=== PATIENT | male | born 1955 | race Caucasian/White ===

== ENCOUNTER 2021-04-20 00:26 | Inpatient (IN) | payer OTHER ==
[2021-04-20] MEDS ORDERED: Ondansetron PF 4 MG/2 ML Vial ONE (01:08)
[2021-04-20] MEDS ORDERED: Morphine 4 MG/ML VIAL ONE (01:08)
[2021-04-20 02:17] LABS: #Basophils 0.1 10x3/uL (0.0-0.2); #Eosinphils 0.1 10x3/uL (0.0-0.5); #Monocytes 0.5 10x3/uL (0.0-1.1); #Neutrophils 7.5 10x3/uL (1.5-8.4); %Basophils 0.6 % (0.0-2.0); %Eosinophils 0.9 % (0.0-6.0); %Lymphocytes 8.7 % (18.0-47.0); %Monocytes 5.6 % (0.0-10.0); %Neutrophils 83.9 % (40.0-75.0); Hemoglobin 10.7 g/dL (13.5-17.5); Mean Corpuscular HGB CONC 34.6 g/dL (32.0-36.0); Mean Corpuscular Hemoglobin 29.9 pg (27.0-33.0); Mean Corpuscular Volume 86.3 fl (81.2-95.1); Mean Platelet Volume 9.9 fl (7.4-10.4); Platelet Count 206 10x3/uL (150-450); RBC Distribution Width 13.5 % (11.5-14.5); Red Blood Cell (RBC) Count 3.58 10x6/uL (4.32-5.72)
[2021-04-20 02:36] LABS: ALT (SGPT) 17 U/L (8-55); AST (SGOT) 32 U/L (5-34); Albumin 3.9 g/dL (3.4-4.8); Alkaline Phosphatase 63 U/L (40-110); Anion Gap 17 mmol/L (10-20); BUN (Urea Nitrogen) 23 mg/dL (8.4-25.7); Calc. Creatinine Clearance 0 mL/min (70-130); Calcium 8.7 mg/dL (7.8-10.44); Carbon Dioxide 23 mmol/L (23-31); Chloride 99 mmol/L (98-107); Globulin 2.6 g/dL (2.4-3.5); Glucose 121 mg/dL (80-115); Lipase 20 U/L (8-78); Protein, Total 6.5 g/dL (5.8-8.1); Sodium 136 mmol/L (136-145)
[2021-04-20 03:15] LABS: CKMB 13.6 ng/mL (0-6.6)
[2021-04-20] MEDS ORDERED: Enoxaparin Sodium 100 MG/ML SYRINGE ONE (03:32)
[2021-04-20] MEDS ORDERED: Nitroglycerin 2% Ointment 1 INCH/1 GM Packet ONE (03:32)
[2021-04-20] MEDS ORDERED: Potassium Chloride 20 MEQ TAB ONE (04:32)
[2021-04-20] MEDS ORDERED: Furosemide 40 MG/4 ML VIAL ONE (05:38)
[2021-04-20] MEDS ORDERED: Nitroglycerin 0.4 MG TAB (25 Tab Bottle) SL PRN (08:13)
[2021-04-20 08:44] LABS: Hemoglobin 10.8 g/dL (13.5-17.5); Platelet Count 219 10x3/uL (150-450)
[2021-04-20] MEDS ORDERED: Potassium Chloride 40 MEQ in Premix Bag 1 BAG IVPB SCH (09:00)
[2021-04-20] MEDS ORDERED: Chloraseptic Spray 180 ml Bottle PO PRN (09:51)
[2021-04-20 10:11] LABS: SARS-CoV-2 NAA Rapid Test DETECTED (NotDetected)
[2021-04-20 10:15] LABS: Troponin I 18.664 ng/mL (< 0.028)
[2021-04-20] MEDS ORDERED: Furosemide 40 MG/4 ML VIAL SLOW IVP SCH (11:00)
[2021-04-20] MEDS: Famotidine/PF 20 mg/2ml Vial SLOW IVP SCH ×2 (11:34→19:40)
[2021-04-20] MEDS: Heparin 25,000 units/D5W 500 ML IVPB SCH (11:35)
[2021-04-20] MEDS: Heparin 10,000 UNITS/ 10 ML VIAL SLOW IVP SCH ×2 (11:36→19:35)
[2021-04-20] MEDS: Potassium Chloride 20 MEQ in Premix Bag 1 BAG IVPB SCH ×2 (11:36→18:14)
[2021-04-20] MEDS: Guaifenesin DM 100-10/5 ML UDCUP PO PRN (11:36)
[2021-04-20] MEDS: Acetaminophen 325 MG TAB PO PRN (16:43)
[2021-04-20 17:28] LABS: Bilirubin Neg (Negative); Blood, Urine 25 (Negative); Clarity Clear (Clear); Glucose, Urine (Dipstick) Normal (Negative); Ketone, Urine Negative (Negative); Leukocyte Negative (Negative); Nitrite Negative (Negative); Protein, Urine (Dipstick) 30 mg/dl (Neg-Trace); Specific Gravity, Urine 1.015 (1.002-1.036); Urobilinogen Normal mg/dL (Less than 2)
[2021-04-20 17:30] LABS: Magnesium 2.1 mg/dL (1.6-2.6)
[2021-04-20 17:33] LABS: RBC/HPF 0-3 HPF (0-3); Squamous Epithelial None Seen HPF (0-3); WBC/HPF None Seen HPF (0-3)
[2021-04-20 17:34] LABS: Bacteria/HPF Rare-Few HPF (None Seen)
[2021-04-20] MEDS: Potassium Chloride 10 MEQ in Premix Bag 1 BAG IVPB SCH ×2 (18:14→18:15)
[2021-04-20 19:19] LABS: Troponin I 19.555 ng/mL (< 0.028)
[2021-04-20] MEDS ORDERED: Potassium Chloride 20 MEQ TAB PO SCH (20:00)
[2021-04-20] MEDS ORDERED: Atorvastatin Calcium 40 MG TAB PO SCH (21:00)
[2021-04-20] MEDS: Morphine 4 MG/ML VIAL SLOW IVP PRN (22:03)
[2021-04-21 02:15] LABS: #Basophils 0.1 10x3/uL (0.0-0.2); #Eosinphils 0.1 10x3/uL (0.0-0.5); #Monocytes 0.5 10x3/uL (0.0-1.1); #Neutrophils 6.5 10x3/uL (1.5-8.4); %Basophils 0.7 % (0.0-2.0); %Eosinophils 0.6 % (0.0-6.0); %Lymphocytes 17.3 % (18.0-47.0); %Neutrophils 74.9 % (40.0-75.0); Hemoglobin 10.9 g/dL (13.5-17.5); Mean Corpuscular HGB CONC 33.9 g/dL (32.0-36.0); Mean Corpuscular Volume 88.7 fl (81.2-95.1); Mean Platelet Volume 10.1 fl (7.4-10.4); Platelet Count 233 10x3/uL (150-450); RBC Distribution Width 13.8 % (11.5-14.5); Red Blood Cell (RBC) Count 3.63 10x6/uL (4.32-5.72); White Blood Cell (WBC) Count 8.6 10x3/uL (3.5-10.5)
[2021-04-21] MEDS: Heparin 10,000 UNITS/ 10 ML VIAL SLOW IVP SCH ×2 (03:40→10:09)
[2021-04-21 04:30] LABS: ALT (SGPT) 22 U/L (8-55); AST (SGOT) 59 U/L (5-34); Albumin 3.7 g/dL (3.4-4.8); Alkaline Phosphatase 63 U/L (40-110); Anion Gap 16 mmol/L (10-20); BUN (Urea Nitrogen) 24 mg/dL (8.4-25.7); Bilirubin, Total 1.3 mg/dL (0.2-1.2); Calc. Creatinine Clearance 83 mL/min (70-130); Calcium 8.4 mg/dL (7.8-10.44); Carbon Dioxide 25 mmol/L (23-31); Chloride 100 mmol/L (98-107); Cholesterol 189 mg/dl (< 200 Desired); Globulin 3.1 g/dL (2.4-3.5); Glucose 119 mg/dL (80-115); HDL Cholesterol 27 mg/dL (>60 Neg Risk); LDL Cholesterol, Calculated 118 mg/dL; Magnesium 2.2 mg/dL (1.6-2.6); Potassium 3.3 mmol/L (3.5-5.1); Protein, Total 6.8 g/dL (5.8-8.1); Sodium 138 mmol/L (136-145); Triglycerides 220 mg/dL (Less than 150)
[2021-04-21] MEDS: Heparin 25,000 units/D5W 500 ML IVPB SCH (08:20)
[2021-04-21] MEDS: Furosemide 40 MG TAB PO SCH (08:21)
[2021-04-21] MEDS: Famotidine/PF 20 mg/2ml Vial SLOW IVP SCH ×2 (08:21→20:31)
[2021-04-21] MEDS: Zinc Sulfate 220 MG CAP PO SCH (08:27)
[2021-04-21] MEDS: Dexamethasone 20 MG/5 ML VIAL SLOW IVP SCH ×2 (08:27→20:30)
[2021-04-21] MEDS: Acetaminophen 325 MG TAB PO PRN (08:45)
[2021-04-21] MEDS: Guaifenesin DM 100-10/5 ML UDCUP PO PRN (08:45)
[2021-04-21] MEDS ORDERED: Potassium Chloride 20 MEQ in Premix Bag 1 BAG IVPB SCH (09:00)
[2021-04-21] MEDS ORDERED: Furosemide 40 MG TAB PO SCH ×2 (09:00)
[2021-04-21 09:41] LABS: Troponin I 12.557 ng/mL (< 0.028)
[2021-04-21] MEDS: Senokot 8.6 MG TAB PO PRN (11:25)
[2021-04-21] MEDS: Ondansetron PF 4 MG/2 ML Vial IVP PRN ×2 (11:25→22:03)
[2021-04-21] MEDS ORDERED: Potassium Chloride 20 MEQ TAB PO SCH (11:45)
[2021-04-21 16:44] LABS: PTT 75.5 sec (22.0-33.0)
[2021-04-21] MEDS: Terazosin HCl 5 MG CAP PO SCH (20:30)
[2021-04-21] MEDS ORDERED: guaiFENesin/Codeine Phosphate 100 mg/10 mg 5 ml UD Cup PO SCH (21:45)
[2021-04-21] MEDS: Benzonatate 100 MG CAP PO PRN (22:03)
[2021-04-22 05:13] LABS: Anion Gap 16 mmol/L (10-20); BUN (Urea Nitrogen) 36 mg/dL (8.4-25.7); CRP (Inflammatory) 9.56 mg/dL (= or < 0.5); Calc. Creatinine Clearance 64 mL/min (70-130); Calcium 8.7 mg/dL (7.8-10.44); Carbon Dioxide 25 mmol/L (23-31); Chloride 102 mmol/L (98-107); Glucose 158 mg/dL (80-115); Potassium 4.4 mmol/L (3.5-5.1); Sodium 139 mmol/L (136-145)
[2021-04-22 05:16] LABS: #Monocytes 0.2 10x3/uL (0.0-1.1); %Basophils 0.1 % (0.0-2.0); %Lymphocytes 5.6 % (18.0-47.0); Hemoglobin 10.5 g/dL (13.5-17.5); Mean Corpuscular HGB CONC 34.2 g/dL (32.0-36.0); Mean Corpuscular Hemoglobin 30.4 pg (27.0-33.0); Mean Platelet Volume 9.8 fl (7.4-10.4); Platelet Count 225 10x3/uL (150-450); RBC Distribution Width 13.6 % (11.5-14.5); Red Blood Cell (RBC) Count 3.45 10x6/uL (4.32-5.72); White Blood Cell (WBC) Count 8.7 10x3/uL (3.5-10.5)
[2021-04-22] MEDS: Furosemide 40 MG TAB PO SCH (06:26)
[2021-04-22] MEDS: Levothyroxine Sodium 25 MCG TAB PO SCH (06:27)
[2021-04-22 08:27] LABS: Hemoglobin 10.5 g/dL (13.5-17.5); Platelet Count 234 10x3/uL (150-450)
[2021-04-22] MEDS: Zinc Sulfate 220 MG CAP PO SCH (08:43)
[2021-04-22] MEDS: Dexamethasone 20 MG/5 ML VIAL SLOW IVP SCH ×2 (08:45→20:33)
[2021-04-22] MEDS: Clopidogrel Bisulfate 75 MG TAB PO SCH (08:45)
[2021-04-22] MEDS: Aspirin 81 mg Enteric Coated Tablet PO SCH (08:45)
[2021-04-22] MEDS: Famotidine/PF 20 mg/2ml Vial SLOW IVP SCH ×2 (08:46→20:33)
[2021-04-22 08:48] LABS: Troponin I 6.683 ng/mL (< 0.028)
[2021-04-22] MEDS ORDERED: Simethicone Chewable 80 MG TAB PO SCH (16:45)
[2021-04-22] MEDS: Acetaminophen 325 MG TAB PO PRN ×2 (17:14→20:56)
[2021-04-22] MEDS: Terazosin HCl 5 MG CAP PO SCH (20:32)
[2021-04-22] MEDS: Guaifenesin DM 100-10/5 ML UDCUP PO PRN (20:32)
[2021-04-22] MEDS: Simethicone Chewable 80 MG TAB PO SCH (20:33)
[2021-04-23] MEDS: Guaifenesin DM 100-10/5 ML UDCUP PO PRN ×2 (04:05→20:54)
[2021-04-23] MEDS: Acetaminophen 325 MG TAB PO PRN ×3 (04:05→20:54)
[2021-04-23] MEDS: Benzonatate 100 MG CAP PO PRN (04:05)
[2021-04-23] MEDS: Levothyroxine Sodium 25 MCG TAB PO SCH (06:28)
[2021-04-23 08:57] LABS: Anion Gap 17 mmol/L (10-20); BUN (Urea Nitrogen) 56 mg/dL (8.4-25.7); Calc. Creatinine Clearance 61 mL/min (70-130); Calcium 8.5 mg/dL (7.8-10.44); Carbon Dioxide 23 mmol/L (23-31); Chloride 99 mmol/L (98-107); Glucose 149 mg/dL (80-115); Potassium 3.9 mmol/L (3.5-5.1); Sodium 135 mmol/L (136-145)
[2021-04-23] MEDS: Clopidogrel Bisulfate 75 MG TAB PO SCH (09:27)
[2021-04-23] MEDS: Aspirin 81 mg Enteric Coated Tablet PO SCH (09:27)
[2021-04-23] MEDS: Potassium Chloride 20 MEQ TAB PO SCH (09:27)
[2021-04-23] MEDS: Famotidine/PF 20 mg/2ml Vial SLOW IVP SCH ×2 (09:28→20:53)
[2021-04-23] MEDS: Dexamethasone 20 MG/5 ML VIAL SLOW IVP SCH ×2 (09:28→20:53)
[2021-04-23] MEDS: Furosemide 40 MG/4 ML VIAL SLOW IVP SCH (09:28)
[2021-04-23] MEDS: Simethicone Chewable 80 MG TAB PO SCH ×3 (09:30→20:53)
[2021-04-23] MEDS: Zinc Sulfate 220 MG CAP PO SCH (09:31)
[2021-04-23] MEDS: Terazosin HCl 5 MG CAP PO SCH (21:38)
[2021-04-24 05:03] LABS: Anion Gap 18 mmol/L (10-20); BUN (Urea Nitrogen) 62 mg/dL (8.4-25.7); Calc. Creatinine Clearance 0 mL/min (70-130); Calcium 8.5 mg/dL (7.8-10.44); Carbon Dioxide 23 mmol/L (23-31); Chloride 99 mmol/L (98-107); Glucose 171 mg/dL (80-115); Sodium 136 mmol/L (136-145)
[2021-04-24] MEDS: Levothyroxine Sodium 25 MCG TAB PO SCH (06:10)
[2021-04-24 08:15] LABS: Hemoglobin 10.8 g/dL (13.5-17.5); Platelet Count 325 10x3/uL (150-450)
[2021-04-24] MEDS: Potassium Chloride 20 MEQ TAB PO SCH (08:52)
[2021-04-24] MEDS: Clopidogrel Bisulfate 75 MG TAB PO SCH (08:52)
[2021-04-24] MEDS: Dexamethasone 20 MG/5 ML VIAL SLOW IVP SCH ×2 (08:52→21:13)
[2021-04-24] MEDS: Famotidine/PF 20 mg/2ml Vial SLOW IVP SCH ×2 (08:52→21:13)
[2021-04-24] MEDS: Furosemide 40 MG/4 ML VIAL SLOW IVP SCH ×2 (08:52→14:24)
[2021-04-24] MEDS: Aspirin 81 mg Enteric Coated Tablet PO SCH (08:52)
[2021-04-24] MEDS: Zinc Sulfate 220 MG CAP PO SCH (08:53)
[2021-04-24] MEDS: Guaifenesin DM 100-10/5 ML UDCUP PO PRN (08:53)
[2021-04-24] MEDS: Acetaminophen 325 MG TAB PO PRN ×2 (08:53→21:12)
[2021-04-24] MEDS: Simethicone Chewable 80 MG TAB PO SCH ×3 (08:53→21:12)
[2021-04-24] MEDS: Morphine 4 MG/ML VIAL SLOW IVP PRN ×2 (11:07→17:22)
[2021-04-24] MEDS: Carvedilol 3.125 MG TAB PO SCH (17:22)
[2021-04-24] MEDS: traZODone HCl 50 MG TAB PO PRN (21:12)
[2021-04-24] MEDS: Terazosin HCl 5 MG CAP PO SCH (21:12)
[2021-04-24] MEDS: Benzonatate 100 MG CAP PO PRN (21:13)
[2021-04-25] MEDS: Furosemide 40 MG/4 ML VIAL SLOW IVP SCH ×2 (05:47→15:50)
[2021-04-25] MEDS: Levothyroxine Sodium 25 MCG TAB PO SCH (05:47)
[2021-04-25] MEDS: Carvedilol 3.125 MG TAB PO SCH ×2 (09:15→15:50)
[2021-04-25] MEDS: Potassium Chloride 20 MEQ TAB PO SCH (09:15)
[2021-04-25] MEDS: Aspirin 81 mg Enteric Coated Tablet PO SCH (09:15)
[2021-04-25] MEDS: Guaifenesin DM 100-10/5 ML UDCUP PO PRN ×2 (09:16→21:51)
[2021-04-25] MEDS: Simethicone Chewable 80 MG TAB PO SCH ×3 (09:16→21:35)
[2021-04-25] MEDS: Zinc Sulfate 220 MG CAP PO SCH (09:16)
[2021-04-25] MEDS: Dexamethasone 20 MG/5 ML VIAL SLOW IVP SCH ×2 (09:16→21:36)
[2021-04-25] MEDS: Clopidogrel Bisulfate 75 MG TAB PO SCH (09:16)
[2021-04-25] MEDS: Famotidine/PF 20 mg/2ml Vial SLOW IVP SCH ×2 (09:16→21:36)
[2021-04-25] MEDS: Acetaminophen 325 MG TAB PO PRN ×2 (09:17→14:15)
[2021-04-25] MEDS: Morphine 4 MG/ML VIAL SLOW IVP PRN (15:50)
[2021-04-25] MEDS: Terazosin HCl 5 MG CAP PO SCH (21:36)
[2021-04-25] MEDS: Bisacodyl 5 MG TAB PO PRN (21:51)
[2021-04-25] MEDS: Benzonatate 100 MG CAP PO PRN (21:51)
[2021-04-26] MEDS: Acetaminophen 325 MG TAB PO PRN (00:45)
[2021-04-26 03:52] LABS: #Monocytes 0.3 10x3/uL (0.0-1.1); #Neutrophils 10.8 10x3/uL (1.5-8.4); %Basophils 0.1 % (0.0-2.0); %Lymphocytes 4.9 % (18.0-47.0); %Monocytes 2.4 % (0.0-10.0); %Neutrophils 90.8 % (40.0-75.0); Hemoglobin 10.8 g/dL (13.5-17.5); Mean Corpuscular HGB CONC 33.8 g/dL (32.0-36.0); Mean Corpuscular Hemoglobin 29.7 pg (27.0-33.0); Mean Corpuscular Volume 87.9 fl (81.2-95.1); Mean Platelet Volume 10.1 fl (7.4-10.4); Platelet Count 349 10x3/uL (150-450); RBC Distribution Width 13.6 % (11.5-14.5); Red Blood Cell (RBC) Count 3.64 10x6/uL (4.32-5.72); White Blood Cell (WBC) Count 11.9 10x3/uL (3.5-10.5)
[2021-04-26] MEDS: Furosemide 40 MG/4 ML VIAL SLOW IVP SCH (06:38)
[2021-04-26] MEDS: Levothyroxine Sodium 25 MCG TAB PO SCH (06:38)
[2021-04-26 09:38] LABS: Hemoglobin 11.2 g/dL (13.5-17.5); Platelet Count 326 10x3/uL (150-450)
[2021-04-26] MEDS: Dexamethasone 20 MG/5 ML VIAL SLOW IVP SCH ×2 (09:55→20:43)
[2021-04-26] MEDS: Pantoprazole 40 MG VIAL IVP SCH (09:55)
[2021-04-26] MEDS: Simethicone Chewable 80 MG TAB PO SCH ×3 (09:56→20:43)
[2021-04-26] MEDS: Zinc Sulfate 220 MG CAP PO SCH (09:56)
[2021-04-26] MEDS: Aspirin 81 mg Enteric Coated Tablet PO SCH (09:57)
[2021-04-26] MEDS: Clopidogrel Bisulfate 75 MG TAB PO SCH (09:57)
[2021-04-26] MEDS: Carvedilol 3.125 MG TAB PO SCH ×2 (09:57→17:22)
[2021-04-26] MEDS: Potassium Chloride 20 MEQ TAB PO SCH (10:01)
[2021-04-26] MEDS: Famotidine/PF 20 mg/2ml Vial SLOW IVP SCH ×2 (11:48→20:43)
[2021-04-26] MEDS: Terazosin HCl 5 MG CAP PO SCH (20:43)
[2021-04-27] MEDS: Ondansetron PF 4 MG/2 ML Vial IVP PRN ×2 (00:09→14:28)
[2021-04-27] MEDS: Levothyroxine Sodium 25 MCG TAB PO SCH (05:49)
[2021-04-27 09:39] LABS: Anion Gap 16 mmol/L (10-20); BUN (Urea Nitrogen) 51 mg/dL (8.4-25.7); Calc. Creatinine Clearance 0 mL/min (70-130); Calcium 8.3 mg/dL (7.8-10.44); Carbon Dioxide 27 mmol/L (23-31); Chloride 99 mmol/L (98-107); Glucose 176 mg/dL (80-115); Potassium 4.8 mmol/L (3.5-5.1); Sodium 137 mmol/L (136-145)
[2021-04-27] MEDS: Guaifenesin DM 100-10/5 ML UDCUP PO PRN (10:14)
[2021-04-27] MEDS: Dexamethasone 20 MG/5 ML VIAL SLOW IVP SCH ×2 (10:14→20:39)
[2021-04-27] MEDS: Bisacodyl 5 MG TAB PO PRN (10:14)
[2021-04-27] MEDS: Simethicone Chewable 80 MG TAB PO SCH ×3 (10:15→20:36)
[2021-04-27] MEDS: Carvedilol 3.125 MG TAB PO SCH ×2 (10:15→17:48)
[2021-04-27] MEDS: Aspirin 81 mg Enteric Coated Tablet PO SCH (10:15)
[2021-04-27] MEDS: Zinc Sulfate 220 MG CAP PO SCH (10:15)
[2021-04-27] MEDS: Pantoprazole 40 MG VIAL IVP SCH (10:15)
[2021-04-27] MEDS: Potassium Chloride 20 MEQ TAB PO SCH (10:15)
[2021-04-27] MEDS: Furosemide 40 MG TAB PO SCH (10:15)
[2021-04-27] MEDS: Clopidogrel Bisulfate 75 MG TAB PO SCH (10:16)
[2021-04-27] MEDS: Famotidine/PF 20 mg/2ml Vial SLOW IVP SCH (10:16)
[2021-04-27 11:01] LABS: #Monocytes 0.4 10x3/uL (0.0-1.1); #Neutrophils 9.6 10x3/uL (1.5-8.4); %Basophils 0.3 % (0.0-2.0); %Lymphocytes 5.9 % (18.0-47.0); %Monocytes 3.6 % (0.0-10.0); %Neutrophils 88.4 % (40.0-75.0); Hemoglobin 10.9 g/dL (13.5-17.5); Mean Corpuscular HGB CONC 32.5 g/dL (32.0-36.0); Mean Corpuscular Hemoglobin 29.7 pg (27.0-33.0); Mean Corpuscular Volume 91.3 fl (81.2-95.1); Mean Platelet Volume 10.6 fl (7.4-10.4); Platelet Count 318 10x3/uL (150-450); RBC Distribution Width 13.9 % (11.5-14.5); Red Blood Cell (RBC) Count 3.67 10x6/uL (4.32-5.72); White Blood Cell (WBC) Count 10.8 10x3/uL (3.5-10.5)
[2021-04-27] MEDS: Benzonatate 100 MG CAP PO PRN ×2 (13:50→20:37)
[2021-04-27] MEDS: guaiFENesin/Codeine Phosphate 100 mg/10 mg 5 ml UD Cup PO PRN (17:48)
[2021-04-27] MEDS: Terazosin HCl 5 MG CAP PO SCH (20:37)
[2021-04-27] MEDS: traZODone HCl 50 MG TAB PO PRN (20:37)
[2021-04-27] MEDS: Acetaminophen 325 MG TAB PO PRN (20:40)
[2021-04-28] MEDS: guaiFENesin/Codeine Phosphate 100 mg/10 mg 5 ml UD Cup PO PRN ×3 (05:25→18:20)
[2021-04-28] MEDS: Levothyroxine Sodium 25 MCG TAB PO SCH (05:25)
[2021-04-28] MEDS: Furosemide 40 MG TAB PO SCH (05:25)
[2021-04-28 06:23] LABS: #Monocytes 0.3 10x3/uL (0.0-1.1); %Basophils 0.2 % (0.0-2.0); %Lymphocytes 4.8 % (18.0-47.0); %Monocytes 2.9 % (0.0-10.0); Hemoglobin 10.9 g/dL (13.5-17.5); Mean Corpuscular HGB CONC 31.8 g/dL (32.0-36.0); Mean Corpuscular Hemoglobin 29.1 pg (27.0-33.0); Mean Corpuscular Volume 91.7 fl (81.2-95.1); Mean Platelet Volume 10.4 fl (7.4-10.4); Platelet Count 320 10x3/uL (150-450); RBC Distribution Width 13.8 % (11.5-14.5); Red Blood Cell (RBC) Count 3.74 10x6/uL (4.32-5.72); White Blood Cell (WBC) Count 11.1 10x3/uL (3.5-10.5)
[2021-04-28 06:46] LABS: Anion Gap 16 mmol/L (10-20); BUN (Urea Nitrogen) 48 mg/dL (8.4-25.7); Calc. Creatinine Clearance 0 mL/min (70-130); Calcium 8.3 mg/dL (7.8-10.44); Carbon Dioxide 25 mmol/L (23-31); Chloride 99 mmol/L (98-107); Glucose 169 mg/dL (80-115); Potassium 4.7 mmol/L (3.5-5.1); Sodium 135 mmol/L (136-145)
[2021-04-28] MEDS: Senokot 8.6 MG TAB PO PRN ×2 (11:11→22:19)
[2021-04-28] MEDS: Potassium Chloride 20 MEQ TAB PO SCH (11:12)
[2021-04-28] MEDS: Zinc Sulfate 220 MG CAP PO SCH (11:12)
[2021-04-28] MEDS: Dexamethasone 20 MG/5 ML VIAL SLOW IVP SCH ×2 (11:12→22:20)
[2021-04-28] MEDS: Carvedilol 3.125 MG TAB PO SCH ×2 (11:12→18:20)
[2021-04-28] MEDS: Simethicone Chewable 80 MG TAB PO SCH ×3 (11:12→22:19)
[2021-04-28] MEDS: Aspirin 81 mg Enteric Coated Tablet PO SCH (11:12)
[2021-04-28] MEDS: Pantoprazole 40 MG VIAL IVP SCH (11:13)
[2021-04-28] MEDS ORDERED: Mineral Oil ENEMA PR SCH (12:00)
[2021-04-28] MEDS: Benzonatate 100 MG CAP PO PRN (22:19)
[2021-04-28] MEDS: Terazosin HCl 5 MG CAP PO SCH (22:21)
[2021-04-28] MEDS: traZODone HCl 50 MG TAB PO PRN (22:29)
[2021-04-29] MEDS: Furosemide 40 MG TAB PO SCH (05:18)
[2021-04-29] MEDS: guaiFENesin/Codeine Phosphate 100 mg/10 mg 5 ml UD Cup PO PRN ×3 (05:18→21:24)
[2021-04-29] MEDS: Simethicone Chewable 80 MG TAB PO SCH ×3 (05:18→21:19)
[2021-04-29] MEDS: Levothyroxine Sodium 25 MCG TAB PO SCH (05:18)
[2021-04-29 05:47] LABS: Anion Gap 13 mmol/L (10-20); BUN (Urea Nitrogen) 47 mg/dL (8.4-25.7); Calc. Creatinine Clearance 0 mL/min (70-130); Calcium 8.1 mg/dL (7.8-10.44); Carbon Dioxide 27 mmol/L (23-31); Chloride 98 mmol/L (98-107); Glucose 158 mg/dL (80-115); Potassium 4.6 mmol/L (3.5-5.1); Sodium 133 mmol/L (136-145)
[2021-04-29 05:49] LABS: #Monocytes 0.2 10x3/uL (0.0-1.1); #Neutrophils 10.2 10x3/uL (1.5-8.4); %Basophils 0.2 % (0.0-2.0); %Lymphocytes 4.5 % (18.0-47.0); %Monocytes 1.9 % (0.0-10.0); %Neutrophils 91.1 % (40.0-75.0); Hemoglobin 10.7 g/dL (13.5-17.5); Mean Corpuscular Hemoglobin 29.9 pg (27.0-33.0); Mean Corpuscular Volume 90.5 fl (81.2-95.1); Mean Platelet Volume 10.6 fl (7.4-10.4); Platelet Count 311 10x3/uL (150-450); Red Blood Cell (RBC) Count 3.58 10x6/uL (4.32-5.72); White Blood Cell (WBC) Count 11.2 10x3/uL (3.5-10.5)
[2021-04-29] MEDS: Carvedilol 3.125 MG TAB PO SCH ×2 (09:22→18:02)
[2021-04-29] MEDS: Aspirin 81 mg Enteric Coated Tablet PO SCH (09:22)
[2021-04-29] MEDS: Senokot 8.6 MG TAB PO PRN ×2 (09:22→21:19)
[2021-04-29] MEDS: Zinc Sulfate 220 MG CAP PO SCH (09:22)
[2021-04-29] MEDS: Dexamethasone 20 MG/5 ML VIAL SLOW IVP SCH ×2 (09:23→21:20)
[2021-04-29] MEDS: Pantoprazole 40 MG VIAL IVP SCH (09:23)
[2021-04-29] MEDS: Potassium Chloride 20 MEQ TAB PO SCH (09:24)
[2021-04-29 13:26] VITALS: BMI 30.4
[2021-04-29] MEDS: Bisacodyl 5 MG TAB PO PRN (14:27)
[2021-04-29] MEDS: Terazosin HCl 5 MG CAP PO SCH (21:20)
[2021-04-30] MEDS: Levothyroxine Sodium 25 MCG TAB PO SCH (05:17)
[2021-04-30] MEDS: Furosemide 40 MG TAB PO SCH (05:17)
[2021-04-30 06:29] LABS: Anion Gap 15 mmol/L (10-20); BUN (Urea Nitrogen) 48 mg/dL (8.4-25.7); Calc. Creatinine Clearance 81 mL/min (70-130); Calcium 8.3 mg/dL (7.8-10.44); Carbon Dioxide 23 mmol/L (23-31); Chloride 100 mmol/L (98-107); Glucose 144 mg/dL (80-115); Potassium 4.8 mmol/L (3.5-5.1); Sodium 133 mmol/L (136-145)
[2021-04-30 07:02] LABS: #Monocytes 0.4 10x3/uL (0.0-1.1); #Neutrophils 11.2 10x3/uL (1.5-8.4); %Basophils 0.2 % (0.0-2.0); %Lymphocytes 5.1 % (18.0-47.0); %Monocytes 2.9 % (0.0-10.0); Hemoglobin 11.4 g/dL (13.5-17.5); Mean Corpuscular HGB CONC 32.5 g/dL (32.0-36.0); Mean Corpuscular Hemoglobin 29.5 pg (27.0-33.0); Mean Corpuscular Volume 90.9 fl (81.2-95.1); Mean Platelet Volume 10.4 fl (7.4-10.4); Platelet Count 299 10x3/uL (150-450); RBC Distribution Width 14.3 % (11.5-14.5); Red Blood Cell (RBC) Count 3.86 10x6/uL (4.32-5.72); White Blood Cell (WBC) Count 12.5 10x3/uL (3.5-10.5)
[2021-04-30] MEDS: Dexamethasone 20 MG/5 ML VIAL SLOW IVP SCH ×2 (08:17→21:48)
[2021-04-30] MEDS: Simethicone Chewable 80 MG TAB PO SCH ×3 (08:18→21:46)
[2021-04-30] MEDS: Zinc Sulfate 220 MG CAP PO SCH (08:18)
[2021-04-30] MEDS: Pantoprazole 40 MG VIAL IVP SCH (08:18)
[2021-04-30] MEDS: Senokot 8.6 MG TAB PO PRN ×2 (08:18→16:57)
[2021-04-30] MEDS: Carvedilol 3.125 MG TAB PO SCH ×2 (08:18→16:58)
[2021-04-30] MEDS: Potassium Chloride 20 MEQ TAB PO SCH (08:18)
[2021-04-30] MEDS: Aspirin 81 mg Enteric Coated Tablet PO SCH (08:18)
[2021-04-30] MEDS ORDERED: Fleet Enema 133 ML BOT PR SCH (09:00)
[2021-04-30] MEDS: Terazosin HCl 5 MG CAP PO SCH (21:46)
[2021-05-01] MEDS: Levothyroxine Sodium 25 MCG TAB PO SCH (06:23)
[2021-05-01] MEDS: Zinc Sulfate 220 MG CAP PO SCH (08:26)
[2021-05-01] MEDS: Potassium Chloride 20 MEQ TAB PO SCH (08:26)
[2021-05-01] MEDS: Aspirin 81 mg Enteric Coated Tablet PO SCH (08:26)
[2021-05-01] MEDS: Dexamethasone 20 MG/5 ML VIAL SLOW IVP SCH (08:26)
[2021-05-01] MEDS: Simethicone Chewable 80 MG TAB PO SCH ×3 (08:26→21:43)
[2021-05-01] MEDS: Carvedilol 3.125 MG TAB PO SCH ×3 (08:26→17:13)
[2021-05-01] MEDS: Furosemide 40 MG TAB PO SCH (08:26)
[2021-05-01] MEDS: Pantoprazole 40 MG VIAL IVP SCH (08:26)
[2021-05-01] MEDS: Benzonatate 100 MG CAP PO SCH ×2 (17:13→21:43)
[2021-05-01] MEDS: Terazosin HCl 5 MG CAP PO SCH (21:43)
[2021-05-02 05:25] LABS: Anion Gap 14 mmol/L (10-20); BUN (Urea Nitrogen) 45 mg/dL (8.4-25.7); Calc. Creatinine Clearance 82 mL/min (70-130); Calcium 8.4 mg/dL (7.8-10.44); Carbon Dioxide 26 mmol/L (23-31); Chloride 100 mmol/L (98-107); Glucose 101 mg/dL (80-115); Potassium 4.6 mmol/L (3.5-5.1); Sodium 135 mmol/L (136-145)
[2021-05-02] MEDS: Levothyroxine Sodium 25 MCG TAB PO SCH (06:34)
[2021-05-02 07:51] LABS: #Monocytes 0.7 10x3/uL (0.0-1.1); #Neutrophils 14.8 10x3/uL (1.5-8.4); %Basophils 0.2 % (0.0-2.0); %Eosinophils 0.1 % (0.0-6.0); %Lymphocytes 7.4 % (18.0-47.0); %Monocytes 4.2 % (0.0-10.0); %Neutrophils 86.6 % (40.0-75.0); Hemoglobin 11.8 g/dL (13.5-17.5); Mean Corpuscular Hemoglobin 29.4 pg (27.0-33.0); Mean Platelet Volume 10.4 fl (7.4-10.4); Platelet Count 285 10x3/uL (150-450); RBC Distribution Width 14.3 % (11.5-14.5); Red Blood Cell (RBC) Count 4.01 10x6/uL (4.32-5.72); White Blood Cell (WBC) Count 17.1 10x3/uL (3.5-10.5)
[2021-05-02] MEDS: Zinc Sulfate 220 MG CAP PO SCH (08:10)
[2021-05-02] MEDS: Pantoprazole 40 MG VIAL IVP SCH (08:10)
[2021-05-02] MEDS: Potassium Chloride 20 MEQ TAB PO SCH (08:11)
[2021-05-02] MEDS: Simethicone Chewable 80 MG TAB PO SCH ×3 (08:11→21:18)
[2021-05-02] MEDS: Benzonatate 100 MG CAP PO SCH ×3 (08:11→20:55)
[2021-05-02] MEDS: Aspirin 81 mg Enteric Coated Tablet PO SCH (08:11)
[2021-05-02] MEDS: Carvedilol 3.125 MG TAB PO SCH ×2 (08:12→18:02)
[2021-05-02] MEDS: Furosemide 40 MG TAB PO SCH (08:13)
[2021-05-02 10:15] LABS: ALT (SGPT) 31 U/L (8-55); AST (SGOT) 16 U/L (5-34); Albumin 3.4 g/dL (3.4-4.8); Alkaline Phosphatase 59 U/L (40-110); Bilirubin, Direct 0.5 mg/dL (0.1-0.3); Bilirubin, Total 1.2 mg/dL (0.2-1.2); Protein, Total 5.9 g/dL (5.8-8.1)
[2021-05-02] MEDS ORDERED: Mag-Al Plus 1200 MG/1200 MG/120 MG/30 ML UDCUP PO PRN (10:43)
[2021-05-02] MEDS ORDERED: Furosemide 40 MG/4 ML VIAL SLOW IVP SCH (10:45)
[2021-05-02] MEDS: Sucralfate 1 GM TAB PO SCH ×3 (11:17→20:54)
[2021-05-02] MEDS ORDERED: Lidocaine 2% Viscous Solution 20 ML, Aluminum & Magnesium Hydroxide 30 ML SSW SCH (11:30)
[2021-05-02] MEDS: Furosemide 40 MG/4 ML VIAL SLOW IVP SCH (13:38)
[2021-05-03] MEDS: Terazosin HCl 5 MG CAP PO SCH (00:46)
[2021-05-03 05:26] LABS: Anion Gap 13 mmol/L (10-20); BUN (Urea Nitrogen) 46 mg/dL (8.4-25.7); Calc. Creatinine Clearance 84 mL/min (70-130); Calcium 8.3 mg/dL (7.8-10.44); Carbon Dioxide 28 mmol/L (23-31); Chloride 97 mmol/L (98-107); Glucose 97 mg/dL (80-115); Magnesium 2.3 mg/dL (1.6-2.6); Potassium 3.5 mmol/L (3.5-5.1); Sodium 134 mmol/L (136-145)
[2021-05-03 05:32] LABS: #Eosinphils 0.1 10x3/uL (0.0-0.5); #Monocytes 0.5 10x3/uL (0.0-1.1); %Basophils 0.1 % (0.0-2.0); %Eosinophils 0.4 % (0.0-6.0); %Lymphocytes 5.6 % (18.0-47.0); %Monocytes 3.3 % (0.0-10.0); %Neutrophils 88.9 % (40.0-75.0); Hemoglobin 10.7 g/dL (13.5-17.5); Mean Corpuscular HGB CONC 32.6 g/dL (32.0-36.0); Mean Corpuscular Hemoglobin 29.6 pg (27.0-33.0); Mean Corpuscular Volume 90.9 fl (81.2-95.1); Mean Platelet Volume 10.4 fl (7.4-10.4); Platelet Count 244 10x3/uL (150-450); RBC Distribution Width 14.3 % (11.5-14.5); Red Blood Cell (RBC) Count 3.61 10x6/uL (4.32-5.72); White Blood Cell (WBC) Count 15.7 10x3/uL (3.5-10.5)
[2021-05-03] MEDS ORDERED: Lidocaine 2% Viscous Solution 20 ML, Aluminum & Magnesium Hydroxide 30 ML SSW SCH (06:00)
[2021-05-03] MEDS: Furosemide 40 MG/4 ML VIAL SLOW IVP SCH ×3 (06:09→20:54)
[2021-05-03] MEDS: Levothyroxine Sodium 25 MCG TAB PO SCH (06:09)
[2021-05-03] MEDS: Carvedilol 3.125 MG TAB PO SCH ×2 (09:17→18:00)
[2021-05-03] MEDS: Benzonatate 100 MG CAP PO SCH ×3 (09:17→20:54)
[2021-05-03] MEDS: Potassium Chloride 20 MEQ TAB PO SCH (09:17)
[2021-05-03] MEDS: Zinc Sulfate 220 MG CAP PO SCH (09:17)
[2021-05-03] MEDS: Sucralfate 1 GM TAB PO SCH ×4 (09:17→21:02)
[2021-05-03] MEDS: Aspirin 81 mg Enteric Coated Tablet PO SCH (09:17)
[2021-05-03] MEDS: Simethicone Chewable 80 MG TAB PO SCH ×3 (09:18→20:54)
[2021-05-03] MEDS: guaiFENesin/Codeine Phosphate 100 mg/10 mg 5 ml UD Cup PO PRN (23:30)
[2021-05-04] MEDS: guaiFENesin/Codeine Phosphate 100 mg/10 mg 5 ml UD Cup PO PRN ×2 (05:08→21:02)
[2021-05-04] MEDS: Furosemide 40 MG/4 ML VIAL SLOW IVP SCH ×3 (05:08→20:21)
[2021-05-04] MEDS: Levothyroxine Sodium 25 MCG TAB PO SCH (05:08)
[2021-05-04 06:10] LABS: Hemoglobin 11.5 g/dL (13.5-17.5); Mean Corpuscular Hemoglobin 29.7 pg (27.0-33.0); Mean Corpuscular Volume 89.9 fl (81.2-95.1); Mean Platelet Volume 10.5 fl (7.4-10.4); Platelet Count 227 10x3/uL (150-450); RBC Distribution Width 14.6 % (11.5-14.5); Red Blood Cell (RBC) Count 3.87 10x6/uL (4.32-5.72); White Blood Cell (WBC) Count 20.2 10x3/uL (3.5-10.5)
[2021-05-04 06:11] LABS: Anion Gap 14 mmol/L (10-20); BUN (Urea Nitrogen) 38 mg/dL (8.4-25.7); Calc. Creatinine Clearance 81 mL/min (70-130); Calcium 8.5 mg/dL (7.8-10.44); Carbon Dioxide 30 mmol/L (23-31); Chloride 91 mmol/L (98-107); Glucose 128 mg/dL (80-115); Magnesium 2.1 mg/dL (1.6-2.6); Potassium 3.4 mmol/L (3.5-5.1); Sodium 132 mmol/L (136-145)
[2021-05-04 07:41] LABS: Band 5 % (5-11); Lymphocytes 3 % (21-51); Monocytes 2 % (0-10); Neutrophil 90 % (42-75)
[2021-05-04 07:42] LABS: Anisocytosis SLIGHT = 6-15 cells (100X) (0-5/hpf); Microcytosis SLIGHT = 6-15 cells (100X) (0-5/hpf); Platelet Morphology Comment Appears Adequate
[2021-05-04 07:43] LABS: Large Platelets SLIGHT
[2021-05-04 07:44] LABS: MDiff Complete? YES
[2021-05-04] MEDS: Aspirin 81 mg Enteric Coated Tablet PO SCH (08:50)
[2021-05-04] MEDS: Benzonatate 100 MG CAP PO SCH ×3 (08:50→20:20)
[2021-05-04] MEDS: Sucralfate 1 GM TAB PO SCH ×4 (08:51→20:20)
[2021-05-04] MEDS: Carvedilol 3.125 MG TAB PO SCH ×2 (08:51→16:10)
[2021-05-04] MEDS: Simethicone Chewable 80 MG TAB PO SCH ×3 (08:51→20:21)
[2021-05-04] MEDS: Potassium Chloride 20 MEQ TAB PO SCH (08:51)
[2021-05-04] MEDS: Zinc Sulfate 220 MG CAP PO SCH (08:53)
[2021-05-04] MEDS ORDERED: Potassium Chloride 20 MEQ TAB PO SCH (10:45)
[2021-05-04] MEDS ORDERED: VANCOMYCIN 1.75 GM/350 ML BAG 1.75 GM in Premix Bag 1 BAG IVPB SCH (11:00)
[2021-05-04] MEDS: Cefepime 1 GM in Sodium Chloride 0.9% 100 ML IVPB SCH (12:20)
[2021-05-04] MEDS ORDERED: Vancomycin 1 GM in Premix Bag 1 BAG IVPB SCH (21:00)
[2021-05-05] MEDS: Cefepime 1 GM in Sodium Chloride 0.9% 100 ML IVPB SCH (01:24)
[2021-05-05] MEDS: Furosemide 40 MG/4 ML VIAL SLOW IVP SCH ×3 (05:14→21:00)
[2021-05-05] MEDS: Levothyroxine Sodium 25 MCG TAB PO SCH (05:14)
[2021-05-05] MEDS: VANCOMYCIN 1.25 GM/250 ML BAG 1.25 GM in Premix Bag 1 BAG IVPB SCH ×2 (05:15→23:57)
[2021-05-05] MEDS: guaiFENesin/Codeine Phosphate 100 mg/10 mg 5 ml UD Cup PO PRN (05:44)
[2021-05-05 07:03] LABS: Hemoglobin 11.3 g/dL (13.5-17.5); Mean Corpuscular HGB CONC 32.2 g/dL (32.0-36.0); Mean Corpuscular Hemoglobin 29.6 pg (27.0-33.0); Mean Corpuscular Volume 91.9 fl (81.2-95.1); Mean Platelet Volume 10.6 fl (7.4-10.4); Platelet Count 254 10x3/uL (150-450); RBC Distribution Width 14.4 % (11.5-14.5); Red Blood Cell (RBC) Count 3.82 10x6/uL (4.32-5.72)
[2021-05-05 07:16] LABS: Anion Gap 19 mmol/L (10-20); BUN (Urea Nitrogen) 37 mg/dL (8.4-25.7); Calc. Creatinine Clearance 87 mL/min (70-130); Calcium 8.6 mg/dL (7.8-10.44); Carbon Dioxide 25 mmol/L (23-31); Chloride 93 mmol/L (98-107); Glucose 140 mg/dL (80-115); Potassium 3.6 mmol/L (3.5-5.1); Sodium 133 mmol/L (136-145)
[2021-05-05] MEDS: Simethicone Chewable 80 MG TAB PO SCH ×3 (08:22→20:47)
[2021-05-05] MEDS: Benzonatate 100 MG CAP PO SCH ×3 (08:22→20:47)
[2021-05-05] MEDS: Sucralfate 1 GM TAB PO SCH ×4 (08:22→20:48)
[2021-05-05] MEDS: Zinc Sulfate 220 MG CAP PO SCH (08:23)
[2021-05-05] MEDS: Aspirin 81 mg Enteric Coated Tablet PO SCH (08:23)
[2021-05-05] MEDS: Carvedilol 3.125 MG TAB PO SCH ×2 (08:23→16:21)
[2021-05-05] MEDS: Potassium Chloride 20 MEQ TAB PO SCH (08:23)
[2021-05-05 08:44] LABS: MDiff Complete? YES
[2021-05-05 08:47] LABS: Lymphocytes 1 % (21-51); Monocytes 3 % (0-10); Neutrophil 96 % (42-75)
[2021-05-05 08:50] LABS: Anisocytosis SLIGHT = 6-15 cells (100X) (0-5/hpf); Microcytosis SLIGHT = 6-15 cells (100X) (0-5/hpf); Platelet Morphology Comment Appears Adequate; Polychromasia SLIGHT = 2-3 cells (100X) (0-2/hpf)
[2021-05-05] MEDS ORDERED: guaiFENesin/Codeine 200 mg/20 mg 10 ml Cup PO SCH (10:00)
[2021-05-05] MEDS ORDERED: Meropenem 1 GM in Sodium Chloride 0.9% 100 ML IVPB SCH ×2 (12:00→14:00)
[2021-05-05] MEDS: guaiFENesin/Codeine Phosphate 100 mg/10 mg 5 ml UD Cup PO SCH ×3 (12:37→23:34)
[2021-05-05] MEDS: Meropenem 1 GM in Sodium Chloride 0.9% 100 ML IVPB SCH (20:47)
[2021-05-05] MEDS: Bisacodyl 5 MG TAB PO PRN (21:23)
[2021-05-05] MEDS: Acetaminophen 325 MG TAB PO PRN (21:24)
[2021-05-05] MEDS: traZODone HCl 50 MG TAB PO PRN (23:34)
[2021-05-05] MEDS: Ondansetron PF 4 MG/2 ML Vial IVP PRN (23:57)
[2021-05-06] MEDS: Acetaminophen 325 MG TAB PO PRN (03:21)
[2021-05-06] MEDS ORDERED: HYDROcodone/Acetaminophen 5/325 mg Tablet PO PRN (05:13)
[2021-05-06] MEDS: guaiFENesin/Codeine Phosphate 100 mg/10 mg 5 ml UD Cup PO SCH (05:16)
[2021-05-06] MEDS: Meropenem 1 GM in Sodium Chloride 0.9% 100 ML IVPB SCH (05:16)
[2021-05-06] MEDS: Ondansetron PF 4 MG/2 ML Vial IVP PRN (05:17)
[2021-05-06] MEDS: Levothyroxine Sodium 25 MCG TAB PO SCH (05:17)
[2021-05-06 05:53] LABS: Anion Gap 17 mmol/L (10-20); BUN (Urea Nitrogen) 45 mg/dL (8.4-25.7); Calc. Creatinine Clearance 87 mL/min (70-130); Calcium 8.5 mg/dL (7.8-10.44); Carbon Dioxide 24 mmol/L (23-31); Chloride 94 mmol/L (98-107); Glucose 176 mg/dL (80-115); Potassium 3.8 mmol/L (3.5-5.1); Sodium 131 mmol/L (136-145)
[2021-05-06 06:08] LABS: Hemoglobin 10.7 g/dL (13.5-17.5); Mean Corpuscular Hemoglobin 29.2 pg (27.0-33.0); Mean Platelet Volume 11.3 fl (7.4-10.4); Platelet Count 213 10x3/uL (150-450); RBC Distribution Width 14.5 % (11.5-14.5); Red Blood Cell (RBC) Count 3.67 10x6/uL (4.32-5.72); White Blood Cell (WBC) Count 23.5 10x3/uL (3.5-10.5)
[2021-05-06] MEDS: Benzonatate 100 MG CAP PO SCH (07:54)
[2021-05-06] MEDS: Furosemide 40 MG/4 ML VIAL SLOW IVP SCH (07:54)
[2021-05-06] MEDS: Simethicone Chewable 80 MG TAB PO SCH (07:54)
[2021-05-06] MEDS: Zinc Sulfate 220 MG CAP PO SCH (07:55)
[2021-05-06] MEDS: Potassium Chloride 20 MEQ TAB PO SCH (07:55)
[2021-05-06] MEDS: Carvedilol 3.125 MG TAB PO SCH (07:55)
[2021-05-06] MEDS: Sucralfate 1 GM TAB PO SCH (07:55)
[2021-05-06 08:14] LABS: Band 4 % (5-11); Eosinophils 1 % (0-10); Lymphocytes 3 % (21-51); Neutrophil 91 % (42-75); Reactive Lymphocytes 1 % (0-10)
[2021-05-06 08:15] LABS: Large Platelets SLIGHT; Platelet Clumps SLIGHT; Platelet Morphology Comment Appears Adequate
[2021-05-06 08:16] LABS: MDiff Complete? YES; RBC Morphology Normal
[2021-05-06] MEDS ORDERED: Sodium Bicarb 50 MEQ/50 ML Abboject 8.4% SYRINGE ONE (10:00)
[2021-05-06] MEDS ORDERED: EPINEPHrine 1 MG/10 ML Abboject SYRINGE ONE (10:00)
[2021-05-06] MEDS ORDERED: Calcium Chloride 1 GM/10 ML Abboject SYRINGE ONE (10:00)
[2021-05-06] MEDS ORDERED: Morphine 4 MG/ML VIAL SLOW IVP PRN (10:03)
[2021-05-06 15:50] VITALS: BP 107/56; TEMP 98.7
== END 2021-05-06 16:55 | disposition expired ==
LOC: CSHERS 00:26 → CSHERHOLD 06:29 → EEVIPCON 06:29 → CSHTELE 10:06
PROVIDERS: ADMIT Student in an Organized Health Care Education/Training Program; ATTEND Family Medicine
PROC: 8E0ZXY6 Isolation (ICD-10-PCS; principal; 2021-04-20)
PROC: 3E0333Z Introduction of Anti-inflammatory into Peripheral Vein, Percutaneous Approach (ICD-10-PCS; 2021-04-21)
PROC: 5A12012 Performance of Cardiac Output, Single, Manual (ICD-10-PCS; 2021-05-06)
PROC: 3E033XZ Introduction of Vasopressor into Peripheral Vein, Percutaneous Approach (ICD-10-PCS; 2021-05-06)
DX: I21.4 Non-ST elevation (NSTEMI) myocardial infarction (principal); I50.23 Acute on chronic systolic (congestive) heart failure; U07.1 COVID-19; J12.82 Pneumonia due to coronavirus disease 2019; J96.01 Acute respiratory failure with hypoxia; J18.9 Pneumonia, unspecified organism; N17.9 Acute kidney failure, unspecified; R04.2 Hemoptysis; I25.10 Atherosclerotic heart disease of native coronary artery without angina pectoris; E03.9 Hypothyroidism, unspecified; I11.0 Hypertensive heart disease with heart failure; E78.5 Hyperlipidemia, unspecified; I25.5 Ischemic cardiomyopathy; E87.6 Hypokalemia; K59.00 Constipation, unspecified; I46.9 Cardiac arrest, cause unspecified; I25.2 Old myocardial infarction; Z95.5 Presence of coronary angioplasty implant and graft; Z95.810 Presence of automatic (implantable) cardiac defibrillator
CPT/HCPCS: 36415; 36416; 71045; 71250; 74177; 80048; 80053; 80061; 80076; 81001; 82553; 83690; 83735; 83880; 84145; 84484; 85014; 85018; 85025; 85049; 85379; 85730; 86140; 87070; 87205; 93005; 93010; 93306; 94760; 96372; 96374; 96375; C9113; J0171; J0692; J1100; J1644; J1650; J1940; J2185; J2270; J2405; J3370; J3480; J3490; S0028; U0002